=== PATIENT | male | born 1985 | race Caucasian/White ===

== ENCOUNTER 2017-11-11 17:50 | Emergency (ER) | payer OTHER ==
--- NOTE | 2017-11-11 18:55 | ER Document Report ---
ED General - General Mode of Arrival: Ambulatory Information source: Patient TRAVEL OUTSIDE OF THE [place] IN LAST 30 DAYS: No <ACOSTA SOLORZANO - Last Filed: 11/11/17 22:29> <JACOBY IBRAHIM - Last Filed: 11/12/17 02:04> <TIAGO REED - Last Filed: 11/12/17 13:31> <ALMA AZEVEDO - Last Filed: 11/12/17 13:37> - General Chief Complaint: Suicidal Ideation Stated Complaint: PSYCH EVAL Time Seen by Provider: 11/11/17 18:45 Notes: 32 y.o male with depression and alcohol abuse and a PMHx of drug abuse presents to the ED with suicidal ideation that has been ongoing for years. He states that he called the 's crisis line for SI who told him to come here. Pt reports that recently his SI has been getting worse but does not care to elaborate on what has been going on. Pt reports that about a month ago he got out of a mental institution in [place]. He states that he was there for about a week going through detox and states that while he was there he had a mental episode as well. Pt would also like to be detoxed from alcohol tonight. Pt first reported that he has not used drugs in the past 10 years but reports that he currently abuses alcohol, about 1 gallon of alcohol per day. After talking with the patient more he then admits to snorting Benzos after being prescribed them in [employer], where he was stationed in the [employer] for the past 4 years. Pt states that he was stationed at [employer] form 2009 to 2013, before going to [facility], and then has since come back a few months ago to live with a sponsor in [place]. Pt's parents live in [place]. Pt reports that he has not had alcohol in 14 hours and states that when he goes this long without alcohol he goes through withdrawal sx such as vomiting and having seizures. He reports having to be hospitalized for alcohol withdrawals in the past. Pt denies any other health issues. He denies taking any medications regularly at home. He reports a PFHx of paternal grandfather with heart issues, mother with thyroid issues, HTN and brain tumor. (ACOSTA SOLORZANO ) - HPI Notes: -year-old male presents with substance abuse alcohol suicidal statements to helpline. Patient denies all suicidal homicidal ideation at this time. No physical complaints. Will be seen by psychology inpatient. (ALMA AZEVEDO) Past Medical History - General Information source: Patient - Social History Smoking Status: Current Every Day Smoker Cigarette use (# per day): Yes - 3packs/day Smoking Education Provided: Yes Frequency of alcohol use: Heavy - 1 gallon per day Drug Abuse: Other - benzodiazepines, last used in [place] Family History: Hypertension, Thyroid Disfunction <ACOSTA SOLORZANO - Last Filed: 11/11/17 22:29> Review of Systems - Review of Systems Constitutional: No symptoms reported EENT: No symptoms reported Cardiovascular: No symptoms reported Respiratory: No symptoms reported Gastrointestinal: No symptoms reported Genitourinary: No symptoms reported Male Genitourinary: No symptoms reported Musculoskeletal: No symptoms reported Skin: No symptoms reported Hematologic/Lymphatic: No symptoms reported Neurological/Psychological: See HPI, Suicidal ideation, Other - alcohol detox <ACOSTA SOLORZANO - Last Filed: 11/11/17 22:29> <JACOBY IBRAHIM - Last Filed: 11/12/17 02:04> <TIAGO REED - Last Filed: 11/12/17 13:31> <ALMA AZEVEDO - Last Filed: 11/12/17 13:37> - Review of Systems Notes: REVIEW OF SYSTEMS: CONSTITUTIONAL: -fevers, -chills EENT: -eye pain, -difficulty swallowing, -nasal congestion CARDIOVASCULAR: -chest pain, -syncope. RESPIRATORY: -cough, -SOB GASTROINTESTINAL: -abdominal pain, -nausea, -vomiting, -diarrhea GENITOURINARY: -dysuria, -hematuria MUSCULOSKELETAL: -back pain, -neck pain SKIN: -rash or skin lesions. HEMATOLOGIC: -easy bruising or bleeding. LYMPHATIC: -swollen, enlarged glands. NEUROLOGICAL: -altered mental status or loss of consciousness, -headache, - neurologic symptoms PSYCHIATRIC: -anxiety, -depression. ALL OTHER SYSTEMS REVIEWED AND NEGATIVE. (ALMA AZEVEDO) Physical Exam <ACOSTA SOLORZANO - Last Filed: 11/11/17 22:29> <JACOBY IBRAHIM - Last Filed: 11/12/17 02:04> <TIAGO REED - Last Filed: 11/12/17 13:31> <ALMA AZEVEDO - Last Filed: 11/12/17 13:37> - Vital signs Vitals: Temp Pulse Resp BP Pulse Ox 99.2 F 92 16 145/82 H 98 11/11/17 18:07 11/11/17 18:07 11/11/17 18:07 11/11/17 18:07 11/11/17 18:07 - Notes Notes: Physical Exam: General: Alert, appears well. Alcohol odor on breath during exam. Shivering/ shakes. HEENT: Normocephalic. Atraumatic. PERRL. Extraocular movements intact. Oropharynx clear. Neck: Supple. Non-tender. Respiratory: No respiratory distress. Clear and equal breath sounds bilaterally. Cardiovascular: Regular rate and rhythm. Abdominal: Normal Inspection. Non-tender. No distension. Normal Bowel Sounds. Back: Non-tender. No deformity or step off. Extremities: Moves all four extremities. Upper extremities: Normal inspection. Normal ROM. Lower extremities: Normal inspection. No edema. Normal ROM. Neurological: Normal cognition. AAOx3. Normal speech. small tremor to his upper extremities and body similar to a shiver. Room was cold and pt was wearing a short-sleeved shirt and shorts. Psychological: Normal affect. Normal Mood. Skin: Warm. Dry. Normal color. (ACOSTA SOLORZANO) PHYSICAL EXAMINATION: GENERAL: Well-appearing, well-nourished and in no acute distress. HEAD: Atraumatic, normocephalic. EYES: Pupils equal round and reactive to light, extraocular movements intact, sclera anicteric, conjunctiva are normal. ENT: nares patent, oropharynx clear without exudates. Moist mucous membranes. NECK: Normal range of motion, supple without lymphadenopathy LUNGS: Breath sounds clear to auscultation bilaterally and equal. No wheezes rales or rhonchi. HEART: Regular rate and rhythm without murmurs ABDOMEN: Soft, nontender, normoactive bowel sounds. No guarding, no rebound. No masses appreciated. EXTREMITIES: Normal range of motion, no pitting or edema. No cyanosis. NEUROLOGICAL: Cranial nerves grossly intact. Normal speech, normal gait. Normal sensory and motor exams. PSYCH: Normal mood, normal affect. SKIN: Warm, Dry, normal turgor, no rashes or lesions noted. (ALMA AZEVEDO) Course - Laboratory Result Diagrams: 11/11/17 19:20 11/11/17 19:20 <ACOSTA SOLORZANO - Last Filed: 11/11/17 22:29> - Laboratory Result Diagrams: 11/11/17 19:20 11/11/17 19:20 - EKG Interpretation by Tx EKG shows normal: Sinus rhythm, [place], Intervals, QRS Complexes, ST-T Waves Rate: Normal - 71 Rhythm: NSR <JACOBY IBRAHIM - Last Filed: 11/12/17 02:04> - Laboratory Result Diagrams: 11/11/17 19:20 11/11/17 19:20 <TIAGO REED - Last Filed: 11/12/17 13:31> - Laboratory Result Diagrams: 11/11/17 19:20 11/11/17 19:20 <ALMA AZEVEDO - Last Filed: 11/12/17 13:37> - Re-evaluation Re-evalutation: 11/12/17 13:37 Young man presents intoxicated making suicidal statements. Patient is now sober in the morning. Evaluation by myself no suicidal homicidal ideation, evaluation by psychology also agree see their note. Patient be discharged home follow-up and outpatient treatment center. 11/12/17 13:[address] Alma Azevedo D.O. (ALMA AZEVEDO) - Vital Signs Vital signs: Temp Pulse Resp BP Pulse Ox 99.0 F 72 16 123/76 98 11/12/17 01:12 11/12/17 01:12 11/12/17 01:12 11/12/17 01:12 11/12/17 01:12 - Laboratory Laboratory results interpreted by ne: 11/11/17 11/11/17 11/11/17 19:20 19:20 20:50 WBC 11.9 H Seg Neutrophils % 81.4 H Lymphocytes % 11.0 L Absolute Neutrophils 9.7 H Magnesium 1.5 L Urine Protein 30 H Urine Urobilinogen 2.0 H Salicylates < 1.0 L Acetaminophen < 10 L Discharge <ACOSTA SOLORZANO - Last Filed: 11/11/17 22:29> <JACOBY IBRAHIM - Last Filed: 11/12/17 02:04> <TIAGO REED - Last Filed: 11/12/17 13:31> <ALMA AZEVEDO - Last Filed: 11/12/17 13:37> - Discharge Clinical Impression: Suicidal ideation, Alcohol abuse Depression Qualifiers: Depression Type: unspecified Qualified Code(s): F32.9 - Major depressive disorder, single episode, unspecified Condition: Stable Disposition: HOME, SELF-CARE Additional Instructions: You have been evaluated by both medical and behavioral health teams and have been deemed appropriate for discharge. It is recommended you follow-up with the local [facility] for continued services for both mental health and substance abuse treatment. DEPRESSION: Your evaluation reveals that you have mental depression. While symptoms may be vague, they often include disturbance of sleep, fatigue, loss of appetite , and general loss of interest in life. While depression may be a side effect of drugs, or a reaction to a major change in your life, many cases have no known cause. If depression is acute, and related to a major loss in your life, you can expect it to clear completely with time. If you have been depressed a long time , are prone to repeated bouts of depression or low mood, or have been thinking of suicide, get help. Depression can be treated with anti-depressant medication and counselling. Long-term depression will often take a few weeks to clear, even with appropriate medication. Follow-up care is important. SUICIDAL IDEATION: Suicidal ideation is a common medical term for thoughts about suicide, which may be as detailed as a formulated plan, without the suicidal act itself. Although most people who undergo suicidal ideation do not commit suicide, some go on to make suicide attempts. The range of suicidal ideation varies greatly from fleeting to detailed planning, role playing, and unsuccessful attempts. While thoughts about suicide are common, most people do not carry out serious actions to commit suicide. Based upon your evaluation and discussion with you, we do not believe you are currently at risk to act upon your thoughts of suicide. You have agreed to return to the Emergency Department, at any time , if you feel inclined to act upon your suicidal thoughts. FOLLOW-UP CARE: If you experience worsening or a significant change in your symptoms, notify the physician immediately or return to the Emergency Department at any time for re-evaluation. Stacey Attestation: 11/11/17 19:28 I personally performed the services described in the documentation, reviewed and edited the documentation which was dictated to the scribe in my presence, and it accurately records my words and actions. (JACOBY IBRAHIM) Scribe Documentation - Scribe Written by Stacey:: Stacey Munoz 11/11/17 [id number] acting as scribe for :: Maynor <ACOSTA SOLORZANO - Last Filed: 11/11/17 22:29>
[2017-11-11] MEDS ORDERED: CLONIDINE HCL 0.1 MG TABLET PO ONE (19:04)
[2017-11-11] MEDS ORDERED: DIPHENHYDRAMINE HCL 50 MG/ML VIAL IV ONE (19:04)
[2017-11-11] MEDS ORDERED: NORMAL SALINE 1000 ML 1,000 ML IV ONE (19:04)
[2017-11-11 19:34] LABS: ABSOLUTE BASOPHILS # (AUTO) 0.1 10^3/uL (0.0-0.2); ABSOLUTE EOSINOPHILS # (AUTO) 0.1 10^3/uL (0.0-0.6); ABSOLUTE LYMPHOCYTES (AUTO) 1.3 10^3/uL (0.5-4.7); ABSOLUTE MONOCYTES (AUTO) 0.7 10^3/uL (0.1-1.4); ABSOLUTE NEUT (AUTO) 9.7 10^3/uL (1.7-8.2); BASOPHILS % (AUTO) 0.7 % (0-2); HEMATOCRIT 44.7 % (37.9-51.0); HEMOGLOBIN 15.5 g/dL (13.5-17.0); MEAN CORPUSCULAR HGB CONC 34.6 g/dL (32.0-36.0); MEAN CORPUSCULAR VOLUME 87 fl (80-97); MONOCYTES % (AUTO) 5.9 % (3-13); PLATELET COUNT 280 10^3/uL (150-450); RED BLOOD COUNT 5.15 10^6/uL (4.35-5.55); RED CELL DISTRIBUTION WIDTH 13.4 % (11.5-14.0); SEGMENTED NEUTROPHILS % (AUTO) 81.4 % (42-78); TOTAL CELLS COUNTED % (AUTO) 100 %; WHITE BLOOD COUNT 11.9 10^3/uL (4.0-10.5)
[2017-11-11 19:53] LABS: ALANINE AMINOTRANSFERASE 29 U/L (21-72); ALBUMIN 4.6 g/dL (3.5-5.0); ALKALINE PHOSPHATASE 53 U/L (38-126); ANION GAP 11 (5-19); ASPARTATE AMINO TRANSFERASE 28 U/L (17-59); BILIRUBIN,DIRECT 0.2 mg/dL (0.0-0.4); BILIRUBIN,TOTAL 0.8 mg/dL (0.2-1.3); BLOOD UREA NITROGEN 9 mg/dL (7-20); CALCIUM 9.4 mg/dL (8.4-10.2); CARBON DIOXIDE 27 mmol/L (22-30); CHLORIDE 104 mmol/L (98-107); GLUCOSE 103 mg/dL (75-110); POTASSIUM 4.3 mmol/L (3.6-5.0); SODIUM 142.2 mmol/L (137-145); TOTAL PROTEIN 7.3 g/dL (6.3-8.2)
[2017-11-11 19:58] LABS: ACETAMINOPHEN < 10 ug/mL (10-30); ALCOHOL < 10 mg/dL (NONE DETECTED); SALICYLATE < 1.0 mg/dL (2.0-20.0)
--- NOTE | 2017-11-11 22:44 | EKG REPORT ---
SEVERITY:- NORMAL ECG - SINUS RHYTHM : Confirmed by: Brisa Roth MD 11-Nov-2017 22:43:36
[2017-11-11 22:49] LABS: APPEARANCE,URINE CLEAR; BILIRUBIN,URINE NEGATIVE (NEGATIVE); COLOR,URINE YELLOW; GLUCOSE, URINE NEGATIVE (NEGATIVE); KETONES,URINE NEGATIVE (NEGATIVE); LEUKOCYTE ESTERASE,URINE NEGATIVE (NEGATIVE); NITRITE,URINE NEGATIVE (NEGATIVE); PROTEIN,URINE 30 mg/dL (NEGATIVE); URINE SPECIFIC GRAVITY 1.025
[2017-11-11 23:11] LABS: URINE AMPHETAMINES SCREEN NEGATIVE; URINE BARBITURATES SCREEN NEGATIVE; URINE BENZODIAZEPINES SCREEN NEGATIVE; URINE COCAINE SCREEN NEGATIVE; URINE MARIJUANA (THC) SCREEN NEGATIVE; URINE METHADONE SCREEN NEGATIVE; URINE PHENCYCLIDINE SCREEN NEGATIVE
[2017-11-12 01:17] VITALS: BP 123/76
[2017-11-12] MEDS ORDERED: NICOTINE 21 MG/24 HR PATCH.TD24 TD ONE (04:00)
== END 2017-11-12 14:11 | disposition home or self-care (01) ==
LOC: ER 17:50
DX: F32.9 Major depressive disorder, single episode, unspecified (principal); R45.851 Suicidal ideations; F10.10 Alcohol abuse, uncomplicated; F13.10 Sedative, hypnotic or anxiolytic abuse, uncomplicated; F17.210 Nicotine dependence, cigarettes, uncomplicated; R25.1 Tremor, unspecified
CPT/HCPCS: 93005; 99284; 96361; 96374; 36415; 80307 ×4; 83735; 85025; 80053; 81001; 93010; J1200; J7030